=== PATIENT | female | born 1980 | race Two or more races ===

== ENCOUNTER 2023-05-24 06:42 | Inpatient (IN) ==
[2023-05-24 07:04] VITALS: BMI 42.0
[2023-05-24 08:43] LABS: BILIRUBIN,URINE NEGATIVE (NEGATIVE); BLOOD/HEMOGLOBIN,URINE NEGATIVE (NEGATIVE); GLUCOSE, URINE NEGATIVE (NEGATIVE); KETONES,URINE NEGATIVE (NEGATIVE); LEUKOCYTE ESTERASE ,URINE 1+ (NEGATIVE); NITRITES,URINE NEGATIVE (NEGATIVE); PROTEIN,URINE 2+ (NEGATIVE); UROBILINOGEN,URINE NORMAL (NORMAL)
[2023-05-24 08:52] LABS: APPEARANCE,URINE HAZY (CLEAR); BACTERIA,URINE TRACE /HPF (NEGATIVE); COLOR,URINE YELLOW (YELLOW); RBC,URINE 0-2 /HPF (0-3); SQUAMOUS EPITHELIAL CELL,UR NUMEROUS /HPF (NEGATIVE)
[2023-05-24 08:56] LABS: HEMOGLOBIN 11.5 g/dL (12.0-16.0); PLATELET COUNT 301 X10^3/uL (150.0-450.0)
[2023-05-24 08:59] LABS: BASOPHILS # (AUTO) 0.2 X10^3/uL (0.0-0.1); BASOPHILS % (AUTO) 0.7 % (0.2-1.0); HEMATOCRIT 35.4 % (36.0-47.0); LYMPHOCYTES # (AUTO) 1.4 X10^3/uL (1.3-2.9); LYMPHOCYTES % (AUTO) 5.9 % (21.0-51.0); MEAN CORPUSCULAR HEMOGLOBIN 26.7 pg (27.0-34.0); MEAN CORPUSCULAR HGB CONC 32.6 g/dL (33.0-35.0); MEAN CORPUSCULAR VOLUME 81.9 fL (80.0-100.0); MONOCYTES # (AUTO) 1.6 x10^3/uL (0.3-0.8); MONOCYTES % (AUTO) 6.7 % (0.0-13.0); NEUTROPHILS # (AUTO) 20.2 x10^3/uL (2.2-4.8); NEUTROPHILS % (AUTO) 86.7 % (42.0-75.0); RED BLOOD COUNT 4.32 X10^6/uL (3.5-5.4); RED CELL DISTRIBUTION WIDTH 13.6 % (11.6-16.5); WHITE BLOOD COUNT 23.3 X10^3/uL (3.6-10.0)
[2023-05-24 09:06] LABS: SERUM PREGNANCY TEST, QUAL POSITIVE >10 mIU/mL
[2023-05-24 09:08] LABS: ALANINE AMINOTRANSFERASE 19 Units/L (12-78); ALKALINE PHOSPHATASE 98 Units/L (46-116); AMYLASE 65 Units/L (25-115); ASPARTATE AMINO TRANSFERASE 22 Units/L (15-37); BLOOD UREA NITROGEN 14 mg/dL (7-18); CALCIUM 7.9 mg/dL (8.5-10.1); CARBON DIOXIDE 25.3 mmol/L (21-32); CHLORIDE 97 mmol/L (98-107); COR CA(FOR HYPOALB) 8.7 mg/dL (8.5-10.1); COR NA(FOR HYPERGLY) 131 mmol/L (136-145); CREATININE 0.76 mg/dL (0.55-1.02); GLUCOSE 114 mg/dL (65-99); LIPASE 20 Units/L (16-77); POTASSIUM 3.5 mmol/L (3.5-5.1); SODIUM 131 mmol/L (136-145); TOTAL PROTEIN 7.7 g/dL (6.4-8.2); eGFR NON BLACK RACES > 60 (>60)
[2023-05-24 09:37] LABS: BAND NEUTROPHILS % 7 % (0-10); BASOPHILS % (MANUAL) 0 % (0-1); HYPOCHROMASIA SLIGHT; OVALOCYTES 1+; PLATELET MORPHOLOGY COMMENT NORMAL (NORMAL); TEAR DROP CELLS SLIGHT
--- NOTE | 2023-05-24 09:41 | ED.ABDFE ---
HPI Time Seen Time Seen by Provider: 05/24/23 08:15 PCP Primary Care Physician: [email or web address] Complaint Chief Complaint:: PT STATES THAT SHE HAS HAD LEFT MIDDLE TO LOWER ABDOMINAL PAIN THAT IS RATED A 10/10 SINCE LAST PM. DENIES ANY RADIATION, OR URINARY SYMPTOMS. PT STATES THAT HER LAST NORMAL BOWEL MOVEMENT WAS YESTERDAY. Self Treatment fo Chief Complaint: NONE COVID-19 Coronavirus risk:travel/contact w/high risk person: No Has patient experienced Coronavirus symptoms: No Source History Provided: Patient and Family Member Mode of arrival Mode of Arrival: Ambulatory Timing Onset of Chief Complaint: 05/23/23 PMH PMH Past Medical History: No Past Surgical History: Yes Surgical History: Family History History of Family Medical Conditions: No Social History Does any household member use tobacco: No Alcohol Use: None Do you use any recreational Drugs:: No Lives With: Family Lives Where: Home Travel Risk Coronavirus risk:travel/contact w/high risk person: No Has patient experienced Coronavirus symptoms: No Infectious screening In the last 2 months have you had wt loss of >10#?: NO Have you had fever, night sweats or hemotysis?: No Have you traveled outside the country in the last 6 months?: No Isolation: Standard PE Vital Signs Vitals: Vital Signs Temperature 99.4 F Pulse Rate [Left] 101 Pulse Rate 125 Respiratory Rate 22 Respiratory Rate 22 Blood Pressure [Left Arm] 118/63 Blood Pressure 127/62 O2 Sat by Pulse Oximetry 97 ROR Labs Reviewed 05/24/23 08:50 05/24/23 08:50 Laboratory: WBC 23.3 X10^3/uL (3.6-10.0) H 05/24/23 08:50 RBC 4.32 X10^6/uL (3.5-5.4) 05/24/23 08:50 Hgb 11.5 g/dL (12.0-16.0) L 05/24/23 08:50 Hct 35.4 % (36.0-47.0) L 05/24/23 08:50 MCV 81.9 fL (80.0-100.0) 05/24/23 08:50 MCH 26.7 pg (27.0-34.0) L 05/24/23 08:50 MCHC 32.6 g/dL (33.0-35.0) L 05/24/23 08:50 RDW 13.6 % (11.6-16.5) 05/24/23 08:50 Plt Count 301 X10^3/uL (150.0-450.0) 05/24/23 08:50 Plt Count Comment Adequate (ADEQUATE) 05/24/23 08:50 MPV 8.0 fL (7.4-11.0) 05/24/23 08:50 Neut % (Auto) 86.7 % (42.0-75.0) H 05/24/23 08:50 Lymph % (Auto) 5.9 % (21.0-51.0) L 05/24/23 08:50 Pierce % (Auto) 6.7 % (0.0-13.0) 05/24/23 08:50 Eos % (Auto) 0.0 % (0.9-2.9) L 05/24/23 08:50 Baso % (Auto) 0.7 % (0.2-1.0) 05/24/23 08:50 Neut # (Auto) 20.2 x10^3/uL (2.2-4.8) H 05/24/23 08:50 Lymph # (Auto) 1.4 X10^3/uL (1.3-2.9) 05/24/23 08:50 Pierce # (Auto) 1.6 x10^3/uL (0.3-0.8) H 05/24/23 08:50 Eos # (Auto) 0.0 x10^3/uL (0.0-0.2) 05/24/23 08:50 Baso # (Auto) 0.2 X10^3/uL (0.0-0.1) H 05/24/23 08:50 Absolute Nucleated RBC 0.1 /100WBC 05/24/23 08:50 Total Counted 100 05/24/23 08:50 Neutrophils % (Manual) 82 % (39-76) H 05/24/23 08:50 Band Neutrophils % 7 % (0-10) 05/24/23 08:50 Lymphocytes % (Manual) 8 % (13-43) L 05/24/23 08:50 Monocytes % (Manual) 3 % (4-9) L 05/24/23 08:50 Eosinophils % (Manual) 0 % (0-6) 05/24/23 08:50 Basophils % (Manual) 0 % (0-1) 05/24/23 08:50 Plt Morphology Comment Normal (NORMAL) 05/24/23 08:50 RBC Morphology Abnormal (NORMAL) A 05/24/23 08:50 Hypochromasia Slight A 05/24/23 08:50 Tear Drop Cells Slight A 05/24/23 08:50 Ovalocytes 1+ A 05/24/23 08:50 Sodium 131 mmol/L (136-145) L 05/24/23 08:50 Corrected Sodium 131 mmol/L (136-145) L 05/24/23 08:50 Potassium 3.5 mmol/L (3.5-5.1) 05/24/23 08:50 Chloride 97 mmol/L (98-107) L 05/24/23 08:50 Carbon Dioxide 25.3 mmol/L (21-32) 05/24/23 08:50 BUN 14 mg/dL (7-18) 05/24/23 08:50 Creatinine 0.76 mg/dL (0.55-1.02) 05/24/23 08:50 Est GFR (MDRD) Af Amer > 60 (>60) 05/24/23 08:50 Est GFR (MDRD) Non-Af > 60 (>60) 05/24/23 08:50 Glucose 114 mg/dL (65-99) H 05/24/23 08:50 Calcium 7.9 mg/dL (8.5-10.1) L 05/24/23 08:50 Corrected Calcium 8.7 mg/dL (8.5-10.1) 05/24/23 08:50 Total Bilirubin 0.50 mg/dL (0.2-1.0) 05/24/23 08:50 AST 22 Units/L (15-37) 05/24/23 08:50 ALT 19 Units/L (12-78) 05/24/23 08:50 Alkaline Phosphatase 98 Units/L (46-116) 05/24/23 08:50 Total Protein 7.7 g/dL (6.4-8.2) 05/24/23 08:50 Albumin 3.0 g/dL (3.4-5.0) L 05/24/23 08:50 Globulin 4.7 g/dL (2.5-4.5) H 05/24/23 08:50 Albumin/Globulin Ratio 0.6 Ratio (1.1-2.1) L 05/24/23 08:50 Amylase 65 Units/L (25-115) 05/24/23 08:50 Lipase 20 Units/L (16-77) 05/24/23 08:50 HCG, Qual Positive >10 mIU/mL 05/24/23 08:50 HCG, Quant 286 mIU/mL (0-6) H 05/24/23 08:50 Specimen Type Clean catch urine 05/24/23 08:00 Urine Color Yellow (YELLOW) 05/24/23 08:00 Urine Appearance Hazy (CLEAR) 05/24/23 08:00 Urine pH 7.0 (5.0 - 8.0) 05/24/23 08:00 Ur Specific [place] 1.015 (1.000-1.030) 05/24/23 08:00 Urine Protein 2+ (NEGATIVE) 05/24/23 08:00 Urine Glucose (UA) Negative (NEGATIVE) 05/24/23 08:00 Urine Ketones Negative (NEGATIVE) 05/24/23 08:00 Urine Blood Negative (NEGATIVE) 05/24/23 08:00 Urine Nitrite Negative (NEGATIVE) 05/24/23 08:00 Urine Bilirubin Negative (NEGATIVE) 05/24/23 08:00 Urine Urobilinogen Normal (NORMAL) 05/24/23 08:00 Ur Leukocyte Esterase 1+ (NEGATIVE) 05/24/23 08:00 Urine RBC 0-2 /HPF (0-3) 05/24/23 08:00 Urine WBC 3-5 /HPF (0-5) 05/24/23 08:00 Ur Squamous Epith Cells Numerous /HPF (NEGATIVE) 05/24/23 08:00 Urine Bacteria Trace /HPF (NEGATIVE) 05/24/23 08:00 Urine Mucus Many /HPF (NEGATIVE) 05/24/23 08:00 Ur Culture Indicated? No/not indicated 05/24/23 08:00 Opioid Opioid Risk Tool Age (Tim box if 16-45): No History of Preadolescent Sexual Abuse: No Total: 0 Total Score Risk Category: Low Risk Copyright: Catracho ALEXANDER predicting aberrant behaviors Discharge Plan Discharge Plan Patient Disposition: HOME, SELF-CARE Condition: Stable Prescriptions: No Action ibuprofen 800 mg tablet 800 mg PO TID PRN (Reason: pain) Qty: 30 2RF itraconazole 100 mg capsule 200 mg PO BID 7 Days Qty: 28 1RF Rx Instructions: must administer with a meal/food Take for 7 days, then after 21 days on day 22 repeat dosage for 7 days promethazine-codeine 6.25 MG/10 MG syrup 5 ml PO Q4-6H PRN (Reason: COUGH/COLD) Qty: 120 0RF triamcinolone acetonide 0.1 % cream 1 applic EXT TID Qty: 15 0RF hydroxyzine HCl 25 MG tablet 25 mg PO Q8H Qty: 20 0RF Health Concerns: Post Hospitalization: new medications and changes needed to prevent readmission or further decline. Pt educated and given instructions on all concerns. Plan of Treatment: Continue with present treatment and follow up plan. Pt is to keep follow up appointment as instructed and take medications as ordered. Orders to Discharge Patient Discharge Orders: Transfer (Routine); Ordered 05/24/23 Ordered By: MARICRUZ STINSON Follow ups/Referrals Follow ups/Referrals: NFD,None [Primary Care Provider] - 3 days Instructions Stand Alone Forms: Post Hospital Follow Up Care
--- NOTE | 2023-05-24 10:18 | CT ---
EXAM:ABDOMEN W/O CONHISTORY:PT STATES THAT SHE HAS HAD LEFT MIDDLE TO LOWER ABDOMINAL PAIN SINCE LAST NIGHT; ABDOMINAL PAINCOMPARISON:NoneTECHNIQUE:CT of the abdomen and pelvis obtained without IV contrast. Study limited due to lack of IV contrast. Dose reduction techniques including Automated Exposure Control (AEC) and adjustment of mA and kV were utilized.FINDINGS:The visualized portions of the lower thorax demonstrate no acute process. Sub 6 mm left lower lobe pulmonary nodule seen on series 3, image 9.No acute osseous abnormality. Multilevel degenerative changes in the visualized spine.The liver, gallbladder, spleen, pancreas, bilateral adrenal glands, and bilateral kidneys demonstrate no acute process given lack of IV contrast. Cholelithiasis.No evidence of bowel obstruction. The appendix is unremarkable. Moderate colonic fecal burden. Short-segment thickening of the descending colon with surrounding induration.The bladder is unremarkable. The uterus is present. No free air or fluid. Nonaneurysmal aorta.IMPRESSION:Short-segment thickening of the descending colon which may reflect uncomplicated diverticulitis or colitis.THIS IS AN ELECTRONICALLY VERIFIED FINAL [id number]/24/2023 10:14 AM - Electronically signed by Amrit Carnes MD
[2023-05-24] MEDS ORDERED: FLAGYL IV PREMIX 500 MG BAG 500 MG/100 ML BAG IV ONE ×2 (12:06→12:07)
[2023-05-24] MEDS ORDERED: NS 1,000 ML IV 1,000 ML ONE (12:06)
[2023-05-24] MEDS ORDERED: FLAGYL IV PREMIX 500 MG BAG 500 MG/100 ML BAG IV SCH (12:46)
[2023-05-24] MEDS: NS 1,000 ML IV 1,000 ML IV SCH ×2 (12:50→23:59)
[2023-05-24] MEDS: ZOSYN VIAL 3.375 GRAMS 3.375 G in NS 100 ML IV 100 ML IV SCH ×2 (13:58→22:03)
[2023-05-24] MEDS: MAG-OX TAB PO SCH ×2 (14:41→16:02)
[2023-05-24] MEDS ORDERED: CONSULT PHARMACY - POTASSIUM & MAGNESIUM XX SCH (15:00)
[2023-05-24] MEDS ORDERED: K-DUR TAB 20 MEQ PO ONE (15:00)
[2023-05-24] MEDS: DILAUDID INJ IVP PRN (19:09)
[2023-05-24] MEDS: COLACE CAP 100 MG PO SCH (20:19)
[2023-05-24] MEDS: FLAGYL IV PREMIX 500 MG BAG 500 MG/100 ML BAG IV SCH (20:20)
[2023-05-25] MEDS: DILAUDID INJ IVP PRN ×4 (01:44→18:46)
[2023-05-25] MEDS: FLAGYL IV PREMIX 500 MG BAG 500 MG/100 ML BAG IV SCH ×4 (02:07→21:27)
[2023-05-25] MEDS: NS 1,000 ML IV 1,000 ML IV SCH ×3 (04:53→21:29)
[2023-05-25] MEDS: ZOSYN VIAL 3.375 GRAMS 3.375 G in NS 100 ML IV 100 ML IV SCH ×3 (05:10→21:28)
[2023-05-25 05:20] LABS: BASOPHILS % (AUTO) 0.3 % (0.2-1.0); EOSINOPHILS % (AUTO) 0.3 % (0.9-2.9); HEMATOCRIT 31.4 % (36.0-47.0); HEMOGLOBIN 10.4 g/dL (12.0-16.0); LYMPHOCYTES # (AUTO) 2.2 X10^3/uL (1.3-2.9); LYMPHOCYTES % (AUTO) 12.5 % (21.0-51.0); MEAN CORPUSCULAR HEMOGLOBIN 27.1 pg (27.0-34.0); MEAN CORPUSCULAR VOLUME 81.9 fL (80.0-100.0); MEAN PLATELET VOLUME 8.3 fL (7.4-11.0); MONOCYTES # (AUTO) 1.2 x10^3/uL (0.3-0.8); MONOCYTES % (AUTO) 6.6 % (0.0-13.0); NEUTROPHILS # (AUTO) 14.1 x10^3/uL (2.2-4.8); NEUTROPHILS % (AUTO) 80.3 % (42.0-75.0); PLATELET COUNT 300 X10^3/uL (150.0-450.0); RED BLOOD COUNT 3.84 X10^6/uL (3.5-5.4); RED CELL DISTRIBUTION WIDTH 13.9 % (11.6-16.5); WHITE BLOOD COUNT 17.6 X10^3/uL (3.6-10.0)
[2023-05-25 05:36] LABS: HCG,QUANTITATIVE 261 mIU/mL (0-6)
[2023-05-25 05:42] LABS: ALANINE AMINOTRANSFERASE 14 Units/L (12-78); ALBUMIN 2.4 g/dL (3.4-5.0); ALKALINE PHOSPHATASE 80 Units/L (46-116); ASPARTATE AMINO TRANSFERASE 14 Units/L (15-37); BLOOD UREA NITROGEN 12 mg/dL (7-18); CALCIUM 7.1 mg/dL (8.5-10.1); CARBON DIOXIDE 27.8 mmol/L (21-32); CHLORIDE 100 mmol/L (98-107); COR CA(FOR HYPOALB) 8.4 mg/dL (8.5-10.1); CREATININE 0.63 mg/dL (0.55-1.02); GLUCOSE 99 mg/dL (65-99); MAGNESIUM 1.9 mg/dL (2.0-2.9); POTASSIUM 3.6 mmol/L (3.5-5.1); SODIUM 132 mmol/L (136-145); TOTAL PROTEIN 6.9 g/dL (6.4-8.2); eGFR NON BLACK RACES > 60 (>60)
[2023-05-25] MEDS ORDERED: CONSULT PHARMACY - POTASSIUM & MAGNESIUM XX SCH (06:00)
[2023-05-25] MEDS ORDERED: K-DUR TAB 20 MEQ PO SCH (08:00)
[2023-05-25] MEDS: MAG-OX TAB PO SCH ×2 (08:19→09:04)
[2023-05-25] MEDS: COLACE CAP 100 MG PO SCH ×2 (08:19→20:08)
[2023-05-25] MEDS ORDERED: LINZESS PO SCH (09:00)
[2023-05-25] MEDS ORDERED: MAGNESIUM SULFATE 1 GRAM/100 mL PREMIX 1 G/100 ML BAG IV ONE (09:05)
[2023-05-25] MEDS: TYLENOL 500 MG TAB EXTRA STRENGTH PO PRN (16:28)
[2023-05-26] MEDS: FLAGYL IV PREMIX 500 MG BAG 500 MG/100 ML BAG IV SCH ×4 (02:23→20:14)
[2023-05-26] MEDS: DILAUDID INJ IVP PRN ×5 (04:11→21:17)
[2023-05-26] MEDS: ZOSYN VIAL 3.375 GRAMS 3.375 G in NS 100 ML IV 100 ML IV SCH ×3 (05:12→21:10)
[2023-05-26 05:30] LABS: BASOPHILS # (AUTO) 0.1 X10^3/uL (0.0-0.1); BASOPHILS % (AUTO) 0.4 % (0.2-1.0); EOSINOPHILS # (AUTO) 0.1 x10^3/uL (0.0-0.2); EOSINOPHILS % (AUTO) 0.3 % (0.9-2.9); HEMOGLOBIN 9.7 g/dL (12.0-16.0); LYMPHOCYTES # (AUTO) 1.7 X10^3/uL (1.3-2.9); LYMPHOCYTES % (AUTO) 10.3 % (21.0-51.0); MEAN CORPUSCULAR HEMOGLOBIN 26.7 pg (27.0-34.0); MEAN CORPUSCULAR HGB CONC 32.3 g/dL (33.0-35.0); MEAN CORPUSCULAR VOLUME 82.6 fL (80.0-100.0); MEAN PLATELET VOLUME 8.3 fL (7.4-11.0); MONOCYTES % (AUTO) 6.3 % (0.0-13.0); NEUTROPHILS # (AUTO) 13.7 x10^3/uL (2.2-4.8); NEUTROPHILS % (AUTO) 82.7 % (42.0-75.0); PLATELET COUNT 266 X10^3/uL (150.0-450.0); RED BLOOD COUNT 3.64 X10^6/uL (3.5-5.4); RED CELL DISTRIBUTION WIDTH 13.9 % (11.6-16.5); WHITE BLOOD COUNT 16.5 X10^3/uL (3.6-10.0)
[2023-05-26 05:46] LABS: ALANINE AMINOTRANSFERASE 10 Units/L (12-78); ALBUMIN 2.1 g/dL (3.4-5.0); ALKALINE PHOSPHATASE 82 Units/L (46-116); ASPARTATE AMINO TRANSFERASE 10 Units/L (15-37); BLOOD UREA NITROGEN 10 mg/dL (7-18); CALCIUM 6.9 mg/dL (8.5-10.1); CARBON DIOXIDE 24.4 mmol/L (21-32); CHLORIDE 101 mmol/L (98-107); COR CA(FOR HYPOALB) 8.4 mg/dL (8.5-10.1); CREATININE 0.52 mg/dL (0.55-1.02); GLUCOSE 93 mg/dL (65-99); MAGNESIUM 2.1 mg/dL (2.0-2.9); POTASSIUM 3.6 mmol/L (3.5-5.1); SODIUM 132 mmol/L (136-145); TOTAL PROTEIN 6.6 g/dL (6.4-8.2); eGFR NON BLACK RACES > 60 (>60)
[2023-05-26] MEDS ORDERED: CONSULT PHARMACY - POTASSIUM & MAGNESIUM XX SCH (07:00)
[2023-05-26] MEDS ORDERED: K-DUR TAB 20 MEQ PO SCH (08:00)
[2023-05-26] MEDS ORDERED: LINZESS PO SCH (08:04)
[2023-05-26] MEDS: COLACE CAP 100 MG PO SCH ×2 (08:49→20:14)
--- NOTE | 2023-05-26 09:11 | US ---
EXAM:OBSTETRICAL TRANSVAGINALHISTORY:MBK=145, FEVER, ABD PAIN, ACUTE DIVERTICULITIS -COMPARISON:None.TECHNIQUE:Multiple transvaginal luna scale and color flow Doppler images of the pelvis were obtained .FINDINGS:No IUP is identified. Endometrial thickness is 5 mm. 11 mm nabothian cyst is seen in the cervix.Ovaries are obscured due to bowel gas. No adnexal masses are seen. No free pelvic fluid is seen.IMPRESSION:No evidence of IUP or ectopic is seen. Correlation with serial quantitative beta HCG levels is recommended.THIS IS AN ELECTRONICALLY VERIFIED FINAL [id number]/26/2023 9:08 AM - Electronically signed by Chato Rios MD
[2023-05-26] MEDS ORDERED: METHOTREXATE SODIUM IM NR (12:15)
[2023-05-26] MEDS: TYLENOL 500 MG TAB EXTRA STRENGTH PO PRN (15:35)
[2023-05-26] MEDS: NS 1,000 ML IV 1,000 ML IV SCH (17:35)
[2023-05-26 17:46] VITALS: RESP 20
[2023-05-27] MEDS ORDERED: ZOFRAN INJ 4 MG VIAL IVP PRN (02:21)
[2023-05-27] MEDS ORDERED: ZOFRAN INJ 4 MG VIAL ONE (02:23)
[2023-05-27] MEDS: NS 1,000 ML IV 1,000 ML IV SCH (02:26)
[2023-05-27] MEDS: FLAGYL IV PREMIX 500 MG BAG 500 MG/100 ML BAG IV SCH ×2 (02:27→08:54)
[2023-05-27] MEDS: DILAUDID INJ IVP PRN ×3 (02:27→10:37)
[2023-05-27] MEDS: ZOSYN VIAL 3.375 GRAMS 3.375 G in NS 100 ML IV 100 ML IV SCH (05:08)
[2023-05-27 05:29] VITALS: O2SAT 95
[2023-05-27 06:05] LABS: BASOPHILS # (AUTO) 0.1 X10^3/uL (0.0-0.1); BASOPHILS % (AUTO) 0.9 % (0.2-1.0); EOSINOPHILS % (AUTO) 0.3 % (0.9-2.9); HEMATOCRIT 29.5 % (36.0-47.0); HEMOGLOBIN 9.6 g/dL (12.0-16.0); LYMPHOCYTES # (AUTO) 1.2 X10^3/uL (1.3-2.9); LYMPHOCYTES % (AUTO) 9.9 % (21.0-51.0); MEAN CORPUSCULAR HEMOGLOBIN 26.9 pg (27.0-34.0); MEAN CORPUSCULAR HGB CONC 32.5 g/dL (33.0-35.0); MEAN CORPUSCULAR VOLUME 82.7 fL (80.0-100.0); MEAN PLATELET VOLUME 8.9 fL (7.4-11.0); MONOCYTES # (AUTO) 0.9 x10^3/uL (0.3-0.8); MONOCYTES % (AUTO) 7.4 % (0.0-13.0); NEUTROPHILS # (AUTO) 9.9 x10^3/uL (2.2-4.8); NEUTROPHILS % (AUTO) 81.5 % (42.0-75.0); PLATELET COUNT 271 X10^3/uL (150.0-450.0); RED BLOOD COUNT 3.57 X10^6/uL (3.5-5.4); RED CELL DISTRIBUTION WIDTH 13.9 % (11.6-16.5); WHITE BLOOD COUNT 12.2 X10^3/uL (3.6-10.0)
[2023-05-27 06:12] LABS: ALANINE AMINOTRANSFERASE 11 Units/L (12-78); ALBUMIN 2.1 g/dL (3.4-5.0); ALKALINE PHOSPHATASE 139 Units/L (46-116); ASPARTATE AMINO TRANSFERASE 13 Units/L (15-37); BLOOD UREA NITROGEN 9 mg/dL (7-18); CALCIUM 7.1 mg/dL (8.5-10.1); CARBON DIOXIDE 23.7 mmol/L (21-32); CHLORIDE 101 mmol/L (98-107); COR CA(FOR HYPOALB) 8.6 mg/dL (8.5-10.1); CREATININE 0.48 mg/dL (0.55-1.02); GLUCOSE 85 mg/dL (65-99); POTASSIUM 3.5 mmol/L (3.5-5.1); SODIUM 131 mmol/L (136-145); TOTAL PROTEIN 6.5 g/dL (6.4-8.2); eGFR NON BLACK RACES > 60 (>60)
--- NOTE | 2023-05-27 06:18 | RAD ---
EXAM:Acute abdominal series three viewsHISTORY:Fecal retentionCOMPARISON:NoneFINDINGS:Heart size is normal. Elle are normal. Lung olivera are clear. Abdominal gas pattern is nonspecific and nonobstructive. No pneumoperitoneum is identified. No abnormal masses or abnormal calcifications are identified. There is little if any stool present within the colon.IMPRESSION:Unremarkable acute abdominal seriesTHIS IS AN ELECTRONICALLY VERIFIED FINAL [id number]/27/2023 6:15 AM - Electronically signed by Amrit Carnes MD
[2023-05-27] MEDS: COLACE CAP 100 MG PO SCH (08:54)
[2023-05-27 10:23] VITALS: BP 116/63; PULSE 83; TEMP 98.4
== END 2023-05-27 11:25 | disposition home or self-care (01) | DRG 392 ==
LOC: ER 06:42 → MED/SURG 11:57
PROVIDERS: ADMIT Obstetrics & Gynecology Obstetrics; ATTEND Obstetrics & Gynecology Obstetrics
DX: E83.42 Hypomagnesemia; E86.0 Dehydration; R10.84 Generalized abdominal pain; K57.32 Diverticulitis of large intestine without perforation or abscess without bleeding; E87.1 Hypo-osmolality and hyponatremia; R89.1 Abnormal level of hormones in specimens from other organs, systems and tissues